=== PATIENT | male | born 2000 | race Caucasian/White ===

== ENCOUNTER 2020-11-07 09:05 | Day surgery (SDC) | payer OTHER ==
[~2020-11-07 09:05] MED LIST: PROPOFOL INJ 200 MG/20 ML VIAL IV ONE
[2020-11-07] MEDS ORDERED: PROPOFOL INJ 200 MG/20 ML VIAL IV ONE (09:46)
[2020-11-07 10:22] VITALS: BP 108/71
--- NOTE | 2020-11-07 11:34 | Operative Report ---
Operative Report DATE OF SURGERY: 11/07/20 Operative Report: The risk, benefits and alternatives of the procedure including the risk of bleeding, perforation requiring surgery have been explained to the patient in detail and informed consent has been obtained. Patient is taken back to the operating room and placed in left, lateral decubital position. Timeout was called. Propofol medication is administered. Rectal examination is done which did not reveal any masses, tears or fissures. An Olympus videoscope was introduced into the patient's rectum. Scope was then carefully advanced all the way to the cecum. Intubation of the terminal ileum was done. Scope is then sequentially pulled back via the various segments of the colon including the ascending colon, hepatic flexure, transverse colon, splenic flexure, descending colon and finally into the rectosigmoid portions of the colon. Retroflexion maneuver is performed. PREOPERATIVE DIAGNOSIS: Change in bowel habits rule out Crohn's disease POSTOPERATIVE DIAGNOSIS: Mild terminal ileitis status post biopsy. Rectal biopsy rule out Crohn's disease OPERATION: Colonoscopy with biopsy SURGEON: RAVEN HARDEN ANESTHESIA: LMAC TISSUE REMOVED OR ALTERED: As noted above. COMPLICATIONS: None. ESTIMATED BLOOD LOSS: None. INTRAOPERATIVE FINDINGS: As noted above. PROCEDURE: Patient tolerated the procedure well. No immediate postprocedure complications are noted. Patient is discharged in good condition. Discharge date 11/07/2020. Discharge diet: Regular. Discharge activity: Regular. 2 to 3-week follow-up to discuss findings. Patient is instructed call the office or proceed to the emergency room should th ere be any further problems or questions. Wait on the pathology.
== END 2020-11-07 10:33 | disposition home or self-care (01) ==
LOC: OROUT 09:05
PROVIDERS: ATTEND Internal Medicine Gastroenterology
DX: K50.00 Crohn's disease of small intestine without complications (principal); K62.89 Other specified diseases of anus and rectum; Z86.19 Personal history of other infectious and parasitic diseases
CPT/HCPCS: 45380; 88305 ×2; 00811; J2704; 811